=== PATIENT | female | born 1990 | race Caucasian/White ===

== ENCOUNTER → 2023-12-11 13:00 | Outpatient (REF) | payer OTHER, SELFPAY | LOC: RAD 13:00 | PROVIDERS: ATTENDING PHYSICIAN Obstetrics & Gynecology; FAMILY PHYSICIAN Family Medicine; REFERRING PHYSICIAN Obstetrics & Gynecology | DX: Z31.41 Encounter for fertility testing (principal); N97.9 Female infertility, unspecified | CPT/HCPCS: 58340; 74740 ==